=== PATIENT | male | born 1965 | race Caucasian/White ===

== ENCOUNTER 2017-06-23 11:16 | Emergency (ER) | payer OTHER ==
[~2017-06-23] VITALS: Ht 182.9 cm; Wt 77.1 kg
== END 2017-06-23 13:26 | disposition home or self-care (01) ==
LOC: ER 11:16
DX: M25.521 Pain in right elbow (principal)

== ENCOUNTER 2017-08-27 07:51 | Outpatient (CLI) | payer OTHER | END 2017-08-27 08:05 | disposition home or self-care (01) | LOC: TOM 07:51 | DX: R10.84 Generalized abdominal pain (principal) ==

== ENCOUNTER 2021-12-26 11:01 | Outpatient (CLI) | payer OTHER | END 2021-12-26 12:13 | disposition home or self-care (01) | LOC: LAB 11:01 | PROVIDERS: ATTEND Urology | DX: R97.20 Elevated prostate specific antigen [PSA] (principal) ==

== ENCOUNTER 2022-01-02 08:46 | Emergency (ER) | payer OTHER ==
[~2022-01-02] VITALS: Ht 182.9 cm; Wt 79.4 kg
== END 2022-01-02 12:00 | disposition home or self-care (01) ==
LOC: ER 08:46
DX: R07.9 Chest pain, unspecified (principal)

== ENCOUNTER 2022-01-12 07:13 | Outpatient (CLI) | payer OTHER | END 2022-01-12 07:26 | disposition home or self-care (01) | LOC: SONOGRAMA 07:13 | PROVIDERS: ATTEND Urology | DX: R97.20 Elevated prostate specific antigen [PSA] (principal) ==